=== PATIENT | male | born 1955 | race Caucasian/White ===

== ENCOUNTER → 2016-08-14 | Outpatient (CLI) | payer OTHER ==
--- NOTE | 2016-08-14 09:48 | DI ---
RIGHT ANKLE, 08/14/2016 9:17 AM: Clinical History: Closed avulsion fracture of the right ankle with routine healing. Previous Exam: 06/23/2016; 07/17/2016. 3 views are submitted. There is still soft tissue swelling over the lateral malleolus. There are old fractures of the lateral malleolus and the posterior malleolus and these have not changed. There are some calcifications in the region of the medial malleolus that also have not changed. This would ceci darwin previous injury to the deltoid ligament. The ankle mortise is intact. There is no ankle effusion . There is an os trigonum. Reading: Soft tissue spine has decreased. There has been no change in the appearance of the ankle joint.
== END ==
LOC: ORTHO 09:26
PROVIDERS: ATTEND Orthopaedic Surgery
DX: S82.891D Other fracture of right lower leg, subsequent encounter for closed fracture with routine healing (principal); M19.071 Primary osteoarthritis, right ankle and foot
CPT/HCPCS: 73610

== ENCOUNTER → 2016-08-22 | Outpatient (CLI) | payer OTHER ==
[2016-08-22 11:12] LABS: BASOPHILS # (AUTO) 0.05 10*3/UL; BASOPHILS % (AUTO) 0.6 % (0-1); EOSINOPHILS % (AUTO) 2.9 % (0-8); HEMATOCRIT 45.8 % (42.0-52.0); HEMOGLOBIN 14.9 g/dL (14.0-18.0); IMM GRAN % (AUTO) 0.1 % (0-5); IMM GRAN# (AUTO) 0.01 10*3/UL; LYMPHOCYTES % (AUTO) 37.7 % (10-50); MEAN CORPUSCULAR HEMOGLOBIN 28.4 PG (27-31); MEAN CORPUSCULAR HGB CONC 32.5 g/dL (33-37); MEAN PLATELET VOLUME 9.6 FL (7.4-12.2); MONOCYTES # (AUTO) 0.87 10*3/UL (0.3-0.8); MONOCYTES % (AUTO) 11.3 % (5-15); NEUTROPHILS # (AUTO) 3.65 10*3/UL; NEUTROPHILS % (AUTO) 47.4 % (50-80); RDW COEFFICIENT OF VARIATION 14.2 % (11.5-14.5); RED BLOOD COUNT 5.24 10^6/uL (4.70-6.10)
[2016-08-22 11:14] LABS: PLATELET MORPHOLOGY COMMENT NORMAL MORPHOLOGY (NORM)
[2016-08-22 11:45] LABS: ASPARTATE AMINO TRANSFERASE 34 IU/L (21-57); BILIRUBIN,TOTAL 0.7 mg/dL (0.3-1.2); BLOOD UREA NITROGEN 15 mg/dL (7-22); CALCIUM 9.3 mg/dL (8.7-10.7); CHLORIDE 102 meq/L (98-112); EST GLOMERULAR FILTRATION > 60 (>60 ml/min/1.73m(2)); GLUCOSE 93 mg/dL (78-110); HDL CHOLESTEROL 33 mg/dL (40-150); POTASSIUM 4.4 meq/L (3.8-5.2); SODIUM 140 meq/L (135-145); TOTAL PROTEIN 7.7 g/dL (6.1-8.0); TRIGLYCERIDES 210 mg/dL (44-200)
== END ==
LOC: LAB 10:59
PROVIDERS: ATTEND Internal Medicine
DX: I10 Essential (primary) hypertension (principal); E78.5 Hyperlipidemia, unspecified; E66.9 Obesity, unspecified; Z12.5 Encounter for screening for malignant neoplasm of prostate
CPT/HCPCS: 36415; 80053; 80061; 84443; 85025; G0103